=== PATIENT | female | born 1985 | race African-American/Black ===

== ENCOUNTER 2024-02-14 03:01 | Emergency (ER) | payer BC ==
[~2024-02-14] VITALS: Ht 162.6 cm; Wt 81.8 kg
[2024-02-14 03:05] VITALS: TEMP 99.3
[2024-02-14] MEDS ORDERED: Ketorolac 15 MG/ML VIAL IV ONE (03:15)
[2024-02-14 04:02] LABS: BASO # 0.1 K/mm3 (0.0-0.2); BASO % 0.6 % (0.0-2.0); EOS # 0.3 K/mm3 (0.0-0.7); EOS % 2.8 % (0.0-4.0); GRAN # 6.3 K/mm3 (1.4-6.5); GRAN % 69.1 % (42.2-75.2); HEMATOCRIT 42.9 % (37.0-47.0); HEMOGLOBIN 14.5 g/dl (12.5-16.0); LYMPH # 1.6 K/mm3 (1.2-3.4); LYMPH % 17.1 % (20.0-51.0); MEAN CELL VOLUME 96 fl (80.0-100.0); MEAN CORPUSCULAR HEMOGLOBIN 33 pg (27-31); MEAN CORPUSCULAR HGB CONC 34 g/dl (33.0-37.0); MEAN PLATELET VOLUME 9.7 fl (7.4-10.4); MONO # 0.9 K/mm3 (0.1-0.6); MONO % 10.1 % (1.7-9.3); PLATELET COUNT 290 K/mm3 (130-400); RED BLOOD COUNT 4.45 M/mm3 (4.10-5.30); REDCELL DISTRIBUTION WIDTH-CV 12.6 % (11.5-14.5)
[2024-02-14 04:17] LABS: ALBUMIN 3.4 g/dL (3.5-5.0); BILIRUBIN,TOTAL 0.4 mg/dL (0.2-1.2); CALCIUM 9.1 mg/dL (8.4-10.2); CREATININE, serum 0.75 mg/dL (0.57-1.11); POTASSIUM 3.8 mEq/L (3.5-4.5); TOTAL PROTEIN 7.4 g/dl (6.2-8.1)
[2024-02-14] MEDS ORDERED: Iohexol 300 - 100 ML VIAL IV ONE (04:29)
[2024-02-14] MEDS ORDERED: NS 40 ML IV SCH (04:30)
[2024-02-14] MEDS ORDERED: CLEOCIN HC150 MG/CAP PO (06:01)
[2024-02-14 06:16] VITALS: BP 110/71; PULSE 72
== END 2024-02-14 06:17 | disposition home or self-care (01) ==
LOC: COL.ER 03:01
PROVIDERS: Emergency Medicine
DX: K04.7 Periapical abscess without sinus (principal)
CPT/HCPCS: J0737; J1885; Q9967